=== PATIENT | female | born 1945 | race African-American/Black ===

== ENCOUNTER 2019-09-25 15:49 | Inpatient (IN) ==
[2019-09-25 17:13] LABS: BASO# 0.03 X1000 (0.0-0.2); BASO% 0.2 % (0.0-0.8); EOS# 0.02 X1000 (0.0-0.7); EOS% 0.1 % (0.0-10.0); HEMATOCRIT 44.9 % (37.0-47.0); HEMOGLOBIN 14.3 g/dL (12.0-16.0); IMM GRAN# 0.02 X1000 (0.0-0.04); IMM GRAN% 0.1 % (0.0-0.5); LYMPH# 2.87 X1000 (1.2-3.4); LYMPH% 16.5 % (20.5-51.1); MCH 25.4 PG (27-31); MCHC 31.8 g/dL (33-37); MCV 79.8 FL (81-99); MONO% 6.9 % (1.7-9.3); NEUT% 76.2 % (42.2-75.2); PLT 346 X1000 (130-400); RBC 5.63 XMIL (4.2-5.4); RDW 13.6 % (11.5-14.5); WBC 17.44 X1000 (4.8-10.8)
[2019-09-25 17:26] LABS: URINE SOURCE CLEAN CATCH
[2019-09-25 17:36] LABS: BILIRUBIN URINE NEGATIVE (NEGATIVE); BLOOD URINE SMALL (NEGATIVE); COLOR YELLOW; GLUCOSE URINE NEGATIVE (NEGATIVE); KETONE URINE 40 mg/dL (NEGATIVE); LEUKOCYTES URINE NEGATIVE (NEGATIVE); NITRITE URINE NEGATIVE (NEGATIVE); PH URINE 6.5; PROTEIN URINE 50 mg/dL (NEGATIVE); TURBIDITY URINE CLEAR (CLEAR); UROBILINOGEN URINE NORMAL (NORMAL)
[2019-09-25] MEDS ORDERED: LEVAQUIN 500 MG/D5W 500 MG/100 ML IVPB IV ONE (17:36)
[2019-09-25 17:40] LABS: AGAP 16; ALB/GLOB RATIO 0.9; ALBUMIN 3.7 g/dL (3.5-5.0); ALKALINE PHOSPHATASE 95 U/L (32-104); BUN 16 mg/dL (8-22); CALCIUM 9.4 mg/dL (8.8-10.2); CHLORIDE 94 mmol/L (98-107); COSMO 272; CREATININE 0.8 mg/dL (0.5-0.9); ESTIMATED GFR > 60; GLUCOSE 106 mg/dL (70-104); GOT 15 U/L (10-30); GPT 8 U/L (10-36); POTASSIUM 3.4 mmol/L (3.5-5.1); SODIUM 135 mmol/L (136-145); TCO2 25 mmol/L (25-35); TOTAL BILIRUBIN 0.49 mg/dL (0.20-1.00); TOTAL PROTEIN 7.9 g/dL (6.3-8.3)
[2019-09-25 17:49] LABS: SP GRAVITY URINE < 1.005
--- NOTE | 2019-09-25 18:13 | PROVIDER DOCUMENTATION ---
This chart was entered by Rhianna Otto Scribe, acting as scribe for Justice Oconnell MD. HPI-Abdominal Pain/GI Problem - General Chief Complaint: Abdominal Pain Stated Complaint: ABSCESS ON COLON Time Seen by Provider: 09/25/19 16:17 Source: patient Allergies/Adverse Reactions: Patient Allergies Allergy/AdvReac Type Severity Reaction Status Date / Time No Known Allergies Allergy Verified 08/18/14 18:43 Home Medications: Home Medication List Medication Instructions Recorded Confirmed Last Taken Type Amlodipine Besylate [Norvasc] 10 mg PO DAILY 08/18/14 08/18/14 08/17/14 History Brimonidine/Timolol Ophth Soln 1 drop BOTH EYES BID 08/18/14 08/18/14 08/18/14 History [Combigan Ophth Soln] Calcium Polycarbophil [Fiber Tabs] 625 mg PO DAILY 08/18/14 08/18/14 08/17/14 History Hydrocodone/APAP 5 mg/325 mg 1 each PO Q6H PRN PRN #12 tablet 08/18/14 Unknown Rx [[place]-5] Ibuprofen [Motrin] 800 mg PO Q8H PRN PRN #30 tablet 08/18/14 Unknown Rx Lisinopril/Hydrochlorothiazide 1 each PO BID 08/18/14 08/18/14 08/17/14 History [Lisinopril-Hctz 20-25 mg Tab] Sitagliptin Phosphate [Januvia] 100 mg PO DAILY 08/18/14 08/18/14 08/17/14 History Travoprost (Benzalkonium) 2.5 ml OP DAILY 08/18/14 08/18/14 08/17/14 History [Travoprost 0.004% Eye Drop] - History of Present Illness-ABD Nature of Presenting Problems: 74yof presents to ED cc RLQ and LLQ abdominal pain, nausea and diarrhea since Wednesday. Pt was seen at Dr. Domínguez office this morning and had CT scan which showed bad case of diverticulitis with abscess according to Dr. Domínguez who spoke with Dr. Oconnell. Pt denies fever, vomiting or blood in stool. Pt has hx of diverticulosis, DM and HTN. Pt is afebrile and nontoxic in appearance upon exam. Abdominal Pain Onset Location: reports: RLQ, LLQ Quality of Pain: reports: sharp Severity in ED: reports: moderate Onset/Duration: reports: 6 days ago Timing: reports: still present Activities at Onset: reports: light activity Exposure to sick contacts?: No Modifying Factors: worse with: palpation Associated Symptoms: reports: diarrhea, nausea # of Diarrhea Episodes: 8 Emesis Description: reports: none Bruising or Bleeding Gums?: No Similar Symptoms Previously?: Yes Recently seen or treated by another doctor?: Yes (seen by Dr. Domínguez this morning) Review of Systems - Adult - REVIEW OF SYSTEMS - ADULT Constitutional: reports: see HPI. denies: chills, fever, fatique Eyes: reports: no symptoms reported Ears, Nose, Mouth & Throat: reports: no symptoms reported Cardiovascular: reports: no symptoms reported Respiratory: reports: no symptoms reported Gastrointestinal: reports: see HPI, abdominal pain (RLQ and LLQ), diarrhea, nausea. denies: vomiting Genitourinary: reports: no symptoms reported Musculoskeletal: reports: no symptoms reported Integumentary: reports: no symptoms reported Neurological: reports: no symptoms reported Psychiatric: reports: no symptoms reported Endocrine: reports: no symptoms reported Hematologic/Lymphatic: reports: no symptoms reported Allergic/Immunologic: reports: no symptoms reported All Other Systems: Reviewed and Negative Past History - Adult - PAST MEDICAL HISTORY-ADULT Review of Records: reports: Old Records Reviewed, Nursing Assessment Review, Medications Reviewed, Social history reviewed & non-contributory. Major Childhood Illnesses: reports: denies history Cardiovascular: reports: HTN Respiratory: reports: denies history Gastrointestinal: reports: denies history Obstetrical/Gynecological: reports: denies history Genitourinary: reports: denies history Musculoskeletal: reports: denies history Neurological: reports: denies history Endocrine/Immune: reports: Diabetes Other Conditions: reports: other (glaucoma) - PRIOR SURGERIES/PROCEDURES Surgical/Procedure History: reports: cholecystectomy, hysterectomy - IMMUNIZATION STATUS Childhood Immunizations: See Nurse Assessment Flu Vaccine: See Nurse Assessment - FAMILY HISTORY Family History: reviewed, not pertinent - SOCIAL HISTORY Smoking: denies Physical Exam-General - PHYSICAL EXAM-ADULT Initial Vital Signs Reviewed: Yes - CONSTITUTIONAL General Appearance: appears well, alert, no apparent distress. negative: anxious, combative - EYES Eyes: PERRL/EOMI, pink conjunctivae. negative: pale conjunctivae - HEAD, EARS, NOSE, MOUTH & THROAT HENMT: normocephalic/atraumatic, moist mucous membranes. negative: angioedema - NECK Neck: non-tender, full range of motion, supple, normal inspection. negative: C- spine tenderness - RESPIRATORY Respiratory: chest non-tender, lungs clear, normal breath sounds. negative: crackles, rales, rhonchi - CARDIOVASCULAR Cardiovascular: normal peripheral pulses, regular rate, rhythm, no edema. negative: bradycardia, tachycardia - GASTROINTESTINAL (ABDOMEN) Abdominal Exam: normal bowel sounds, soft, tenderness (RLQ and LLQ). negative: rigid - LYMPHATIC Lymphatic: no adenopathy. negative: enlargement - MUSCULOSKELETAL Back Exam: normal inspection, no CVA tenderness, no vertebral tenderness. negative: kyphosis Extremity: normal range of motion, non-tender, normal gait, normal inspection, no pedal edema, no calf tenderness, normal capillary refill. negative: deformity - SKIN Integumentary: normal color, normal turgor, warm/dry. negative: diaphoresis, jaundice - NEUROLOGIC Neurologic: senior gis analyst II-XII nml as tested, grossly normal, no motor/sensory deficits. negative: facial droop - PSYCHIATRIC Psych/Mental Status: normal mood/affect, oriented x 3. negative: anxious, disheveled Progress - PLAN OF CARE/RESULTS Progress/Plan/Lab Results: Orders Category Date Time Status BLOOD CULTURE [BLDCUL] Stat Lab 09/25/19 16:18 Uncollected CBC WITH ELECTRONIC DIFF [HEME] Stat Lab 09/25/19 16:17 Uncollected COMPREHENSIVE METABOLIC PANEL [CHEM] Stat Lab 09/25/19 16:18 Uncollected LACTATE, PLASMA [CHEM] Stat Lab 09/25/19 16:18 Uncollected URINALYSIS DIPSTICK ONLY [URINALYSIS] Stat Lab 09/25/19 16:18 Uncollected Result Diagrams: 09/25/19 17:00 09/25/19 17:00 - CT/MRI 1 CT Study: Abdomen, Pelvis Impression: Abnormal ([facility] - [address], [address], [place] [address] [facility] - [address] [place] [address] Department of Imaging Patient: SPARKLE GOULD Date: 09/25/19#: [id number] : 1945DM Status: REG CLIAcct#: [id number] Age/Sex: 74/FRoom/Bed: Loc: CT Ordering Physician: Cash Domínguez Jr, MD Family Physician: Tashi Contreras Jr, MD Reason for Procedure: RLQ PAIN / DIVERTICULITIS Signed CT ABD/PELVIS W/PO AND IV CON - 09/25/2019 INDICATION: RLQ PAIN / DIVERTICULITIS COMPARISON: None FINDINGS: There is some chronic atelectasis in the lung bases. Heart size is normal. There are cholecystectomy clips. Otherwise all abdominal organs are normal. There is severe wall thickening of the sigmoid colon with some surrounding inflammatory stranding, particularly at the right medial side. There is a small rim-enhancing fluid collection measuring 2.7 x 1.9 cm compatible with a tiny diverticular abscess. There are numerous diverticula all throughout the sigmoid colon. The transverse and descending colon are also affected. Normal appendix. No free air. The uterus is not demonstrated. Urinary bladder and rectum are normal. There are moderate degenerative changes of the spine. No acute or suspicious bony lesion. IMPRESSION: 1. Sigmoid colon diverticulitis with a small diverticular abscess. 2. This report was discussed with RT Dulce on 09/25/2019 at 2:45 PM and was readback. This exam was performed using automated exposure control, adjustment of mA or kV according to patient size, and/or use of iterative reconstruction technique Electronically signed by Marcel Lamar 09/25/2019 2:48 PM 09/25/19 8588 Interpreting Physician: Marcel Lamar MD Dictated Date/Time: 09/25/19 1447 cc: Cash Domínguez Jr, MD; Tashi Contreras Jr, MD), See EMR Report - CONSULTS/PCP/HOSPITALIST Notification #1 *Consult/PCP/Hospitalist*: Dr Domínguez asked that PCP admit Reason/Comments: agreed to consult #2 Consult: Dr Shaikh Time Discussed: 18:12 Reason/Comments: asked for basic orders and will see on floor Consult Disposition: Admit Departure - Departure Date of Disposition Decision: 09/25/19 Time of Disposition Decision: 18:09 DIAGNOSIS: Diverticulitis Disposition: ADMITTED INPATIENT 09 Certified Medical Emergency: Emergent Condition: Fair Referrals and Follow-Ups: Tashi Contreras Jr, MD [Primary Care Provider] - - Critical Care Note This patient required my direct & personal management of CC.: No Attestation - Physician/ RITIKA Attestation Patient care was provided by Advanced Practice Provider:: No The physician spent face to face time with patient:: Yes Advanced Practice Provider documentation review:: Supervising physician onsite and consulted in the evaluation and care of this patient. The physician did have a face to face encounter with the patient. This chart was documented by the indicated scribe, (Rhianna Otto Scribbeth) and accurately reflects the services I performed and decisions made by me, Justice Oconnell MD, as attested by the provider's signature.
[2019-09-26] MEDS ORDERED: LEVAQUIN 500 MG/D5W 500 MG/100 ML IVPB ONE (00:12)
[2019-09-26] MEDS ORDERED: TYLENOL PO PRN (06:28)
[2019-09-26] MEDS ORDERED: KLOR-CON PO ONE (06:28)
[2019-09-26 07:29] LABS: BASO# 0.02 X1000 (0.0-0.2); BASO% 0.1 % (0.0-0.8); EOS# 0.04 X1000 (0.0-0.7); EOS% 0.3 % (0.0-10.0); HEMATOCRIT 43.3 % (37.0-47.0); HEMOGLOBIN 13.8 g/dL (12.0-16.0); IMM GRAN# 0.02 X1000 (0.0-0.04); IMM GRAN% 0.1 % (0.0-0.5); LYMPH# 2.29 X1000 (1.2-3.4); LYMPH% 14.5 % (20.5-51.1); MCH 25.7 PG (27-31); MCHC 31.9 g/dL (33-37); MCV 80.6 FL (81-99); MONO# 1.09 X1000 (0.11-0.59); MONO% 6.9 % (1.7-9.3); NEUT# 12.32 X1000 (1.4-6.5); NEUT% 78.1 % (42.2-75.2); PLT 304 X1000 (130-400); RBC 5.37 XMIL (4.2-5.4); RDW 13.4 % (11.5-14.5); WBC 15.78 X1000 (4.8-10.8)
[2019-09-26 08:42] LABS: AGAP 19; ALB/GLOB RATIO 0.9; ALBUMIN 3.6 g/dL (3.5-5.0); ALKALINE PHOSPHATASE 92 U/L (32-104); BUN 16 mg/dL (8-22); CALCIUM 9.6 mg/dL (8.8-10.2); CHLORIDE 96 mmol/L (98-107); COSMO 279; CREATININE 0.8 mg/dL (0.5-0.9); ESTIMATED GFR > 60; GLUCOSE 99 mg/dL (70-104); GOT 20 U/L (10-30); GPT 8 U/L (10-36); POTASSIUM 3.3 mmol/L (3.5-5.1); SODIUM 139 mmol/L (136-145); TCO2 24 mmol/L (25-35); TOTAL BILIRUBIN 0.54 mg/dL (0.20-1.00); TOTAL PROTEIN 7.6 g/dL (6.3-8.3)
[2019-09-26] MEDS: HUMALOG SUBQ SCH ×4 (08:43→22:05)
[2019-09-26] MEDS: MORPHINE IV PRN ×3 (09:19→20:38)
[2019-09-26] MEDS: FLAGYL 500 MG/NS 500 MG/100 ML IVPB IV SCH ×2 (09:21→20:38)
[2019-09-26] MEDS: JANUVIA PO SCH (09:22)
[2019-09-26] MEDS: PRINZIDE 10/12.5MG PO SCH (09:22)
[2019-09-26] MEDS: FIBERCON PO SCH (09:22)
[2019-09-26] MEDS: COMBIGAN OPHTH SOLN BOTH EYES SCH ×3 (09:23→20:41)
[2019-09-26] MEDS: NORVASC PO SCH (09:23)
--- NOTE | 2019-09-26 13:45 | PROGRESS NOTE ---
DATE: 09/26/2019 SUBJECTIVE: The patient feeling a little better in regard to abdominal pain. History of recurrent diverticulitis in the past. OBJECTIVE: T-max 99.5 degrees, pulse 93, respirations 18, blood pressure 142/73, and O2 saturation on room air 97%.CV: RRR without murmur. Lungs: Clear to auscultation. Abdomen: Soft. Active bowel sounds. Mild tenderness in right suprapubic area. Minimal left lower quadrant. No mass or organomegaly. No rebound or guarding. Extremities: No calf tenderness, cords or edema. Neurologic: Cranial nerves 2-12 are intact. LABORATORY: White count has declined from admission from 17 down to 15, hemoglobin 13.8, and platelets 304,000. CMP unremarkable except for potassium of 3.3. The patient was given potassium 40 mEq orally x1 this morning. Blood sugars 156 this morning IMAGING: CT scan of the abdomen and pelvis reveals sigmoid diverticulitis with small abscess. ASSESSMENT: 1. Sigmoid diverticulitis with small abscess. 2. Type 2 diabetes mellitus. 3. Hypertension. 4. Glaucoma. 5. Mild hypokalemia. PLAN: 1. Continue IV Flagyl and Levaquin and her home medications. 2. Monitoring Accu-Chek's and given her sliding scale as required. 3. She is on clear liquids currently. We will continue that with. 4. We will start prophylactic doses of Lovenox as she is quite inactive at this point. 5. Replete potassium. 6. We will plan on conservative measures, and repeat CAT scan in the next few days. cc: MD Emily Aggarwal MD
--- NOTE | 2019-09-26 16:57 | HISTORY AND PHYSICAL ---
CHIEF COMPLAINT: Abdominal pain. HISTORY OF PRESENT ILLNESS: This is a 74-year-old female who has been having lower abdominal pain for the past 3 days. According to the patient, she was having significant pain in her lower abdomen, because of which she saw Dr. Domínguez from the GI service who did CT scan on her abdomen that showed severe diverticulitis along with abscess formation because of which he advised the patient to be admitted to the hospital through emergency room. The patient denies having any fever but does complain of having some nausea. She denies having any vomiting. She has also been having diarrhea that has been watery. PAST MEDICAL HISTORY: 1. Type 2 diabetes mellitus. 2. Hypertension. 3. Glaucoma. SOCIAL HISTORY: Patient smokes 1 pack of cigarettes per week. She has been smoking for the past 52 years. She did quit smoking 9 months ago but then restarted smoking cigarettes over the . She lives alone and has 3 children. She has 1 son and 2 daughters, all of home live in [facility]. FAMILY HISTORY: Noncontributory. ALLERGIES: No known drug allergies reported. CURRENT HOME MEDICATIONS: 1. Amlodipine 10 mg orally once daily. 2. Lisinopril/hydrochlorothiazide 20 mg/25 mg orally twice daily. 3. Januvia 100 mg orally once daily. 4. Hydrocodone/acetaminophen 5 mg/325 mg orally every 6 hours as needed for pain. 5. Combigan ophthalmic solution 1 drop in each eye twice daily. 6. Travoprost eye drops 1 drop in each eye at bedtime. REVIEW OF SYSTEMS: A full 14-point review of systems was obtained that was pretty much the same as already has been explained in the HPI. PHYSICAL EXAMINATION: VITAL SIGNS: Temperature 99.3 degrees, pulse 106 per minute, respiratory rate 14 per minute, blood pressure 145/67, pulse oximetry 95% on room air. GENERAL: The patient is alert and oriented x3. She does not appear to be in any acute distress. HEENT: Within normal limits. NECK: Supple without any thyromegaly. LYMPHATICS: No lymphadenopathy noted in the neck region. CHEST: Chest wall is nontender. CARDIOVASCULAR: First and second heart sounds are audible without any murmurs or gallops. RESPIRATORY: Bilateral lung air entry is good without any rales or rhonchi. GASTROINTESTINAL: Abdomen is soft and nondistended. It is moderately tender in right and left lower quadrants. No guarding or rigidity are present. There is also no rebound tenderness. Normal bowel sounds are present. NEUROLOGIC: No focal deficits are present. GENITOURINARY: Deferred. MUSCULOSKELETAL: No deformities are present. INTEGUMENTARY: Skin is warm, dry, and without any rash. DIAGNOSTIC DATA: CBC shows WBC count of 17.44 with 76.2% neutrophils. Rest of the CBC is nondiagnostic. Comprehensive metabolic panel showed potassium levels of 3.4 and sodium levels of 135. Rest of the comprehensive metabolic panel is nondiagnostic. Urinalysis was nondiagnostic as well. IMPRESSION: 1. Abdominal pain secondary to acute diverticulitis with small abscess on CT scan. 2. Hypokalemia and hyponatremia. 3. History of type 2 diabetes mellitus and hypertension. PLAN: The patient will be admitted to the medical floor and will be initiated on levofloxacin along with metronidazole intravenously. We will give her morphine sulfate on as-needed basis for pain and give her ondansetron as directed for nausea and vomiting relief. We will place her on a clear liquid diet and advance diet as tolerated. We will repeat CBC and chemistry tomorrow morning. Further recommendations will be given as per hospital course. cc: Emily Shaikh MD
[2019-09-26] MEDS: TRAVATAN 0.004% OPH SOLN BOTH EYES SCH (20:36)
[2019-09-27] MEDS: PRINZIDE 10/12.5MG PO SCH ×4 (02:39→21:33)
[2019-09-27] MEDS: LEVAQUIN 750 MG in NS 150 ML IV SCH (02:40)
[2019-09-27] MEDS: MORPHINE IV PRN ×3 (02:54→21:28)
[2019-09-27] MEDS: ZOFRAN IV PRN ×2 (03:55→21:27)
[2019-09-27] MEDS: FLAGYL 500 MG/NS 500 MG/100 ML IVPB IV SCH ×4 (04:23→21:27)
[2019-09-27 07:22] LABS: BASO# 0.02 X1000 (0.0-0.2); BASO% 0.1 % (0.0-0.8); EOS# 0.02 X1000 (0.0-0.7); EOS% 0.1 % (0.0-10.0); HEMATOCRIT 40.1 % (37.0-47.0); HEMOGLOBIN 12.6 g/dL (12.0-16.0); IMM GRAN# 0.04 X1000 (0.0-0.04); IMM GRAN% 0.2 % (0.0-0.5); LYMPH# 1.49 X1000 (1.2-3.4); LYMPH% 8.9 % (20.5-51.1); MCH 25.4 PG (27-31); MCHC 31.4 g/dL (33-37); MCV 80.8 FL (81-99); MONO# 1.11 X1000 (0.11-0.59); MONO% 6.7 % (1.7-9.3); MPV 9.8 FL (7.4-10.4); NEUT# 13.97 X1000 (1.4-6.5); PLT 307 X1000 (130-400); RBC 4.96 XMIL (4.2-5.4); RDW 13.4 % (11.5-14.5); WBC 16.65 X1000 (4.8-10.8)
[2019-09-27] MEDS: HUMALOG SUBQ SCH ×4 (07:34→21:39)
[2019-09-27 07:41] LABS: AGAP 12; BUN 14 mg/dL (8-22); CHLORIDE 98 mmol/L (98-107); COSMO 280; CREATININE 0.8 mg/dL (0.5-0.9); ESTIMATED GFR > 60; GLUCOSE 128 mg/dL (70-104); MAGNESIUM 1.9 mg/dL (1.5-2.7); POTASSIUM 3.4 mmol/L (3.5-5.1); SODIUM 139 mmol/L (136-145); TCO2 29 mmol/L (25-35)
[2019-09-27] MEDS: NORVASC PO SCH (08:13)
[2019-09-27] MEDS: JANUVIA PO SCH (08:13)
[2019-09-27] MEDS: LOVENOX SUBQ SCH (08:14)
[2019-09-27] MEDS: COMBIGAN OPHTH SOLN BOTH EYES SCH (08:14)
[2019-09-27] MEDS: FIBERCON PO SCH (08:15)
[2019-09-27] MEDS ORDERED: KLOR-CON PO ONE (18:36)
[2019-09-27] MEDS: PROTONIX IV SCH (19:13)
[2019-09-27] MEDS: SODIUM CHLORIDE 0.9% INJ SCH (19:13)
[2019-09-27] MEDS: NS + KCL 20 MEQ 1,000 ML IV SCH (19:13)
--- NOTE | 2019-09-27 21:05 | PROGRESS NOTE ---
DATE: 09/27/2019 SUBJECTIVE: A 74-year-old patient, admitted with significant pain in the lower abdomen, moderate in intensity. The patient also had some nausea. CT scan of the abdomen did reveal significant diverticulitis and small abscess. The patient is on IV antibiotics. The patient claims she still has significant pain and discomfort. Complaining of low-grade fever. Her oral intake is poor. No typical chest pain or palpitation. Denied any nausea or vomiting. The patient did have bowel movement after she had the CT scan done. Her leukocytosis is improving. Denied unusual cough or expectoration. Admission history and physical noted. Past medical history significant for hypertension, NIDDM, glaucoma. OBJECTIVE: Vital signs: Blood pressure 138/53, pulse 76, respirations 16, temperature 98.8 degrees.Skin: Senile turgor. Neck supple. No JVD. Lungs: Bilateral good air entry present. CVS: S1 and S2 heard. Abdomen soft, globular. Bowel sounds present. Tenderness, lower abdomen. No guarding or rigidity. Extremities: No cyanosis or clubbing. No acute DVT. CELL COVERER: Alert, awake. Able to move all 4 limbs. ASSESSMENT: 1. The patient does have significant diverticulitis. 2. Noninsulin-dependent diabetes mellitus. 3. Hypertension. 4. Laboratory data revealed hypokalemia. 5. Leukocytosis. PLAN: I am going to supplement potassium. We will give her some IV fluid, Protonix for upset stomach. Continue rest of the treatment. Check appropriate labs. I am going to repeat abdominal x-ray tomorrow. Overall plan discussed at length with the patient, and she is in agreement. cc: MD Emily Macdonald MD
[2019-09-27] MEDS: TRAVATAN 0.004% OPH SOLN BOTH EYES SCH (21:28)
[2019-09-28] MEDS: LEVAQUIN 750 MG in NS 150 ML IV SCH (02:08)
[2019-09-28] MEDS: ZOFRAN IV PRN ×2 (02:20→18:39)
[2019-09-28] MEDS: MORPHINE IV PRN (02:20)
[2019-09-28] MEDS: COMBIGAN OPHTH SOLN BOTH EYES SCH ×3 (02:21→22:33)
[2019-09-28] MEDS: FLAGYL 500 MG/NS 500 MG/100 ML IVPB IV SCH ×4 (05:35→22:33)
[2019-09-28] MEDS: HUMALOG SUBQ SCH ×4 (07:37→22:32)
[2019-09-28 08:06] LABS: BASO# 0.02 X1000 (0.0-0.2); BASO% 0.1 % (0.0-0.8); EOS# 0.01 X1000 (0.0-0.7); EOS% 0.1 % (0.0-10.0); HEMATOCRIT 41.5 % (37.0-47.0); IMM GRAN# 0.03 X1000 (0.0-0.04); IMM GRAN% 0.2 % (0.0-0.5); LYMPH# 1.65 X1000 (1.2-3.4); LYMPH% 10.5 % (20.5-51.1); MCH 25.5 PG (27-31); MCHC 31.3 g/dL (33-37); MCV 81.5 FL (81-99); MONO# 1.03 X1000 (0.11-0.59); MONO% 6.5 % (1.7-9.3); MPV 9.9 FL (7.4-10.4); NEUT# 13.02 X1000 (1.4-6.5); NEUT% 82.6 % (42.2-75.2); PLT 314 X1000 (130-400); RBC 5.09 XMIL (4.2-5.4); RDW 13.4 % (11.5-14.5); WBC 15.76 X1000 (4.8-10.8)
[2019-09-28 08:26] LABS: AGAP 13; ALB/GLOB RATIO 0.8; ALBUMIN 3.2 g/dL (3.5-5.0); ALKALINE PHOSPHATASE 100 U/L (32-104); BUN 11 mg/dL (8-22); CALCIUM 9.2 mg/dL (8.8-10.2); CHLORIDE 96 mmol/L (98-107); COSMO 272; CREATININE 0.8 mg/dL (0.5-0.9); ESTIMATED GFR > 60; GLUCOSE 106 mg/dL (70-104); GOT 18 U/L (10-30); GPT 12 U/L (10-36); MAGNESIUM 1.6 mg/dL (1.5-2.7); POTASSIUM 3.9 mmol/L (3.5-5.1); SODIUM 136 mmol/L (136-145); TCO2 27 mmol/L (25-35); TOTAL PROTEIN 7.1 g/dL (6.3-8.3)
--- NOTE | 2019-09-28 08:27 | Diag Imaging Result Doc PS360 ---
ABDOMEN FLAT/UPRIGHT - 09/28/2019 INDICATION: sbo COMPARISON: None FINDINGS: There is a nonobstructive bowel gas pattern. No free air or abdominal calcifications. There are surgical clips in the right upper quadrant. IMPRESSION: No acute disease. Electronically signed by Marcel Lamar 09/28/2019 8:24 AM
--- NOTE | 2019-09-28 08:29 | PROGRESS NOTE ---
DATE: 09/28/2019 SUBJECTIVE: Ms. Kamara is feeling somewhat better. Lower abdominal pain seems to be improving. The patient did have a bowel movement yesterday. No nausea or vomiting. No typical chest pain or palpitations. Denied any diarrhea, blood or mucus in the stool. OBJECTIVE: Vital Signs: Her vital signs reviewed. Blood pressure 132/66, pulse 85, respirations 17, and temperature normal. Neck: Supple. No JVD. Lungs: Bilateral good air entry present. CVS: S1 and S2 heard. Abdomen: Soft. No distention. Bowel sounds present. Tenderness lower abdomen improving. ADMINISTRATIVE ASSISTANT RECEPTIONIST: Alert and awake. Able to move all 4 limbs. LABORATORY: Data done yesterday reviewed and discussed with the patient. Today's labs are pending. ASSESSMENT AND PLAN: We will continue current treatment. Out of bed to chair. Ambulate the patient in the room and hallway. Her problem includes diverticulitis with small abscess, hypertension, glaucoma and IDDM. Patient is on Flagyl and Levaquin. Overall plan discussed at length with the patient, and she is in agreement. cc: MD Emily Macdonald MD
[2019-09-28] MEDS: FIBERCON PO SCH (08:48)
[2019-09-28] MEDS: PRINZIDE 10/12.5MG PO SCH ×3 (08:49→22:35)
[2019-09-28] MEDS: NORVASC PO SCH (08:49)
[2019-09-28] MEDS: JANUVIA PO SCH (08:49)
[2019-09-28] MEDS: LOVENOX SUBQ SCH (08:49)
[2019-09-28] MEDS: NS + KCL 20 MEQ 1,000 ML IV SCH (13:37)
[2019-09-28] MEDS: SODIUM CHLORIDE 0.9% INJ SCH (18:39)
[2019-09-28] MEDS: PROTONIX IV SCH (18:39)
[2019-09-28] MEDS: TRAVATAN 0.004% OPH SOLN BOTH EYES SCH (22:32)
[2019-09-29] MEDS: FLAGYL 500 MG/NS 500 MG/100 ML IVPB IV SCH ×4 (03:19→20:27)
[2019-09-29] MEDS: LEVAQUIN 750 MG in NS 150 ML IV SCH (06:20)
[2019-09-29] MEDS: HUMALOG SUBQ SCH ×4 (06:57→22:05)
--- NOTE | 2019-09-29 08:10 | Diag Imaging Result Doc PS360 ---
EXAM: CT ABD/PELVIS W/IV CONT ONLY 09/29/2019 HISTORY: abd.pain,diverticulitis TECHNIQUE: This exam was performed using automated exposure control, adjustment of mA or kV according to patient size, and/or use of iterative reconstruction technique. COMMENT: There is fibrosis and some bronchiectasis in the medial portion of the right lower lobe. The appearance of the visualized portion of the chest has not changed significantly since 09/25/2019. There are atherosclerotic calcifications present in the distal abdominal aorta. There is some noncalcified plaque distally but there is no evidence of aneurysm. The mesenteric and renal arteries are patent. There has been cholecystectomy. There is no evidence of nephrolithiasis. There is a small hiatal hernia. The liver, spleen, adrenal glands, and pancreas are unremarkable. The kidneys are without evidence of hydronephrosis. There are number of small cortical cysts in the left kidney. There is diverticulosis present in the left colon and diverticulitis in the sigmoid colon. The small bowel is not distended. There is no evidence of significant adenopathy. Pelvis: The paracolic abscess which was demonstrated at the time the previous study is again noted, currently measuring 29 mm in greatest dimension. This has not changed significantly since the previous study there are however additional loculations present more inferiorly which were not as evident on the previous study. There is no evidence of free fluid. The urinary bladder is unremarkable. There has been hysterectomy. There are bone islands in the right pubic bone, left ischium and severe degenerative facet disease at L5-S1 on the left. There is facet disease elsewhere in the lumbar spine. IMPRESSION: Sigmoid diverticulitis with paracolic abscesses. Electronically signed by Juvenal Ferreira 09/29/2019 8:07 AM
[2019-09-29 08:57] LABS: URINE SOURCE CLEAN CATCH
[2019-09-29 09:01] LABS: BILIRUBIN URINE NEGATIVE (NEGATIVE); BLOOD URINE TRACE (NEGATIVE); COLOR YELLOW; GLUCOSE URINE NEGATIVE (NEGATIVE); KETONE URINE 10 mg/dL (NEGATIVE); LEUKOCYTES URINE SMALL (NEGATIVE); NITRITE URINE NEGATIVE (NEGATIVE); PH URINE 6.5; PROTEIN URINE NEGATIVE (NEGATIVE); TURBIDITY URINE CLEAR (CLEAR); UROBILINOGEN URINE NORMAL (NORMAL)
[2019-09-29] MEDS: COMBIGAN OPHTH SOLN BOTH EYES SCH ×2 (09:01→22:06)
[2019-09-29 09:02] LABS: UR EPITHELIAL CELLS <10 /HPF (<10); URINE BACTERIA NEGATIVE /HPF; URINE RBC <10 /HPF (<10); URINE WBC <10 /HPF (<10)
[2019-09-29] MEDS: LOVENOX SUBQ SCH (09:02)
[2019-09-29] MEDS: PRINZIDE 10/12.5MG PO SCH ×3 (09:02→22:08)
[2019-09-29] MEDS: JANUVIA PO SCH (09:02)
[2019-09-29] MEDS: FIBERCON PO SCH (09:02)
[2019-09-29] MEDS: NORVASC PO SCH (09:02)
[2019-09-29 09:10] LABS: SP GRAVITY URINE < 1.005
--- NOTE | 2019-09-29 10:32 | PROGRESS NOTE ---
DATE: 09/29/2019 SUBJECTIVE: Ms. Kamara is feeling better. The patient tolerated a full liquid diet well. No high- grade fever or chills. The patient still has some abdominal pain though much less. Blood work done yesterday did reveal leukocytosis. No typical chest pain or palpitations. The patient is having a bowel movement. OBJECTIVE: Vital Signs: Noted. Neck: Supple. No JVD. Lungs: Bilateral good air entry present. Cardiovascular System: S1 and S2 heard. Abdomen: Soft, globular. Bowel sounds present. Tenderness in lower abdomen. Extremities: No cyanosis, clubbing. No acute DVT. Central Nervous System: Alert, awake, able to move all 4 limbs. LABORATORY DATA: Done yesterday, WBC count 15.76. The patient does have a left shift. ASSESSMENT AND PLAN: The patient was concerned about her diverticular abscess, diverticulitis. Her WBC count is not improving significantly. I am going to repeat CT scan of the abdomen and pelvis. Ambulate the patient in the room and hallway. Discussed about contrast-induced nephropathy risks. The patient understood and agreed. I am going to get CT scan of the abdomen and pelvis. The patient is eager to go home. After reviewing CT, we will make further recommendations. Hopefully I am planning to discharge her home on oral antibiotics, plenty of liquids orally. Continue home medicine. Advised patient to be on full liquid to soft diet as tolerable. Follow up with Dr. Contreras next week. The patient understood and agreed. cc: MD Emily Macdonald MD
[2019-09-29 16:34] LABS: BASO# 0.03 X1000 (0.0-0.2); BASO% 0.3 % (0.0-0.8); EOS# 0.05 X1000 (0.0-0.7); EOS% 0.4 % (0.0-10.0); HEMATOCRIT 40.3 % (37.0-47.0); HEMOGLOBIN 12.7 g/dL (12.0-16.0); IMM GRAN# 0.04 X1000 (0.0-0.04); IMM GRAN% 0.3 % (0.0-0.5); LYMPH# 1.93 X1000 (1.2-3.4); LYMPH% 16.8 % (20.5-51.1); MCH 25.6 PG (27-31); MCHC 31.5 g/dL (33-37); MCV 81.1 FL (81-99); MONO# 0.68 X1000 (0.11-0.59); MONO% 5.9 % (1.7-9.3); MPV 9.7 FL (7.4-10.4); NEUT# 8.73 X1000 (1.4-6.5); NEUT% 76.3 % (42.2-75.2); PLT 318 X1000 (130-400); RBC 4.97 XMIL (4.2-5.4); RDW 13.5 % (11.5-14.5); WBC 11.46 X1000 (4.8-10.8)
[2019-09-29] MEDS: NS + KCL 20 MEQ 1,000 ML IV SCH ×2 (19:49→19:50)
[2019-09-29] MEDS: PROTONIX IV SCH (20:27)
--- NOTE | 2019-09-29 21:47 | PROGRESS NOTE ---
DATE: 09/29/2019 SUBJECTIVE: Ms. Kamara is doing better. She denied any fever, chills. Her oral intake is fairly well. No nausea, vomiting. Minimal abdominal pain. The patient is having bowel movement. I repeated CT scan today, results reviewed. Her abscess is still the same size or may be minimally enlarged. I consulted her pilot plant technician, who recommended to consult surgeon, and there recommendation was to keep the patient in the hospital. Clinically, as I said, patient was afebrile, ambulating well. I repeated a CBC and her white count is normal. The patient was eager to go home. I re-evaluated the patient. Her tenderness is improving. The patient will be seen by Dr. Jordan and Dr. Arita over the weekend, and Dr. Dominguez. PLAN: Discussed with the patient. cc: MD Emily Macdonald MD MTDD
[2019-09-29] MEDS: TRAVATAN 0.004% OPH SOLN BOTH EYES SCH (22:06)
[2019-09-30] MEDS: FLAGYL 500 MG/NS 500 MG/100 ML IVPB IV SCH ×4 (01:50→19:42)
--- NOTE | 2019-09-30 04:41 | GENERAL SURGERY CONSULTATION ---
DATE: 09/29/2019 REASON FOR CONSULTATION: Diverticular abscess. HISTORY OF PRESENT ILLNESS: This is a 74-year-old female who has had 2 outpatient episodes of diverticulitis that resolved with p.o. antibiotics, but developed worsening symptoms over the last few days. She was initially evaluated by Dr. Domínguez and was found to have a diverticular abscess. She was admitted on the for management of this. Another CT scan was obtained on the 09/29 that showed persistent abscess but no change. She says her bowel function prior to all this has been usual. She had no blood. She does have an extensive family history of colon cancer, including a brother who had a colon resection and I believe an older family member that succumbed to the disease. She has had a colonoscopy, I believe, most recently 2015. MEDICAL HISTORY: Diabetes, hypertension, glaucoma. SURGICAL HISTORY: She has had a hysterectomy, I believe she has had a cholecystectomy as well. SOCIAL HISTORY: She does smoke a pack cigarettes a week. Occasional alcohol. She lives in [place], has worked on the [employer] in the past. FAMILY HISTORY: Reviewed and noncontributory. REVIEW OF SYSTEMS: A 10-point review of systems performed, negative other than what is mentioned in HPI. MEDICATIONS: She takes several medications for diabetes and hypertension, but no anticoagulants. PHYSICAL EXAMINATION: General: She is alert, in no acute distress. Vital signs: She is afebrile. Pulse 84, blood pressure 137/61, oxygen saturation 95%. HEENT: No scleral icterus. No cervical mass. Cardiovascular: Normal rate. Pulmonary: No increased work of breathing. Abdomen: Soft, nontender, nondistended. Integument: Warm and dry. Psychiatric: Appropriate affect. Neurologic: No gross deficits. Peripheral vascular: No lower extremity edema. Lymphatic: No cervical, axillary, or inguinal adenopathy. LABORATORY DATA: White count 11, hematocrit 40. Creatinine is normal yesterday. Urinalysis shows small leukocytes. I reviewed both her previous CT scan prior to admission and the one obtained on 09/29. ASSESSMENT/PLAN: A 74-year-old female with a very small 2.5 cm pericolonic diverticular abscess. She has no free air. Her abdominal exam is benign. Her symptoms are much improved. Given the fact that she does have an abscess not amenable to percutaneous drainage, I think IV antibiotics is the most reasonable option with PICC line. I have discussed with the patient. Another option would be p.o. antibiotics, but I do worry about this incompletely resolving with this. Her exam is benign, she has normalizing white count. We will follow her over the next couple days and advance her diet gradually as tolerated. She may ultimately benefit from an elective sigmoid colectomy given recurrent symptoms or if this were to fail or progress. However, in an elective situation her chance of colostomy would be much lower, it would also allow us to give a follow-up colonoscopy, as it has been almost 4 years since her last with her extensive family history of colon cancer. We will follow along. Discussed the plan with the patient. She understands. cc: MD Emily Champion MD MTDD
[2019-09-30] MEDS: LEVAQUIN 750 MG in NS 150 ML IV SCH (06:03)
[2019-09-30] MEDS: HUMALOG SUBQ SCH ×4 (07:05→22:25)
[2019-09-30] MEDS: PRINZIDE 10/12.5MG PO SCH ×2 (09:32→20:11)
[2019-09-30] MEDS: NORVASC PO SCH (09:32)
[2019-09-30] MEDS: JANUVIA PO SCH (09:32)
[2019-09-30] MEDS: LOVENOX SUBQ SCH (09:32)
[2019-09-30] MEDS: COMBIGAN OPHTH SOLN BOTH EYES SCH ×2 (09:33→20:10)
[2019-09-30] MEDS: FIBERCON PO SCH (09:34)
[2019-09-30 12:28] LABS: INR 1.26
[2019-09-30] MEDS ORDERED: NS 250 ML ONE (13:00)
[2019-09-30] MEDS ORDERED: LOMOTIL PO SCH (13:00)
--- NOTE | 2019-09-30 14:20 | PROGRESS NOTE ---
DATE: 09/30/2019 The patient is a 74-year-old black female patient of Dr. Contreras with diverticulitis and diverticular abscess about 3 cm in the sigmoid colon. Dr. Jordan is following. She is currently on Levaquin and Flagyl. She seems to be improving. Laboratory indicates white blood count 23921, down from a couple days ago, 15,700. Hematocrit is 40.3. VITAL SIGNS: Temperature 98.3 degrees, heart rate 76, respirations 18, blood pressure 148/59, O2 saturation on room air 97%. Her abdominal discomfort has improved, but she continues to have diarrhea, loose watery stools. Brief discussion was made with Dr. Jordan who indicated that IV antibiotics at home would be needed to help resolve the abscess. Despite her apparent improvement, he felt the IV was more indicated than p.o. antibiotics. Therefore, a PICC line consult is obtained. If she continues to improve, discharge home will be considered with home antibiotics on Wednesday. cc: MD Emily Carlton MD
--- NOTE | 2019-09-30 15:58 | GENERAL SURGERY PROGRESS NOTE ---
DATE: 09/30/2019 SUBJECTIVE: She feels well. Only very mild intermittent discomfort. No fevers. No tachycardia. OBJECTIVE: Blood pressure 148/59. General: She is alert. Cardiovascular normal rate. Pulmonary no increased work of breathing. Abdomen is soft, nontender, nondistended. Integument: Warm and dry. White count was down to 11 yesterday. ASSESSMENT AND PLAN: This pleasant 74-year-old female with diverticular abscess is small, not amenable to percutaneous drainage. Given these findings, I would recommend PICC line and IV antibiotics as an outpatient. I talked to Dr. Wild about this. Otherwise we can follow her along. She does seem to be clinically improving from an infection standpoint. cc: MD Emily Champion MD
[2019-09-30] MEDS: PROTONIX IV SCH (18:54)
[2019-09-30] MEDS: TRAVATAN 0.004% OPH SOLN BOTH EYES SCH (20:11)
--- NOTE | 2019-09-30 20:35 | GASTROENTEROLOGY CONSULTATION ---
DATE: 09/30/2019 PRIMARY CARE PHYSICIAN: Dr. Tashi Contreras. REASON FOR CONSULTATION: Diverticulitis and diverticular abscess. HISTORY OF PRESENT ILLNESS: Ms. Kamara is a 74-year-old female who was admitted on 09/25/2019 for abdominal pain. She had seen Dr. Domínguez as an outpatient. She had a CT scan which showed evidence of severe diverticulitis along with abscess formation. She was admitted to the hospital for further treatment. While in the hospital, she was seen by the General Surgery team, who recommended IV antibiotics. She had a PICC line placed today, and the plan is to continue antibiotics for a total of 2 weeks. There are no plans of any surgical intervention at the moment. The patient is feeling better, and she is eager to go home. Most likely, she will be getting discharged tomorrow morning if she tolerates IV antibiotics and the PICC line is working well. PAST MEDICAL HISTORY: Type 2 diabetes, hypertension, glaucoma. FAMILY HISTORY: She has a strong family history of colon cancer, including colon cancer in her brother, who required colon resection. ALLERGIES: No known drug allergies. SOCIAL HISTORY: She smokes 1 pack of cigarettes per week. She has been smoking for the last 52 years. She quit smoking 9 months ago but restarted smoking over the last Thanksgi. She lives alone. She has 3 children. She has 1 son and 2 daughters. All of them live in the [place] area. Her last colonoscopy was likely in 2015. PAST SURGICAL HISTORY: Hysterectomy, cholecystectomy. REVIEW OF SYSTEMS: Denies any current fevers, rigors, chills, chest pain, shortness of breath, dyspnea. Denies any vomiting blood or passing blood in the stools. She does have a history of altered bowel habits. Denies any neurologic complaints. MEDICATIONS IN HOSPITAL: Include: Tylenol amlodipine, brimonidine/timolol ophthalmic solution, FiberCon, Lomotil, Lovenox, Flagyl, Humalog sliding scale, Levaquin, lisinopril/hydrochlorothiazide, morphine, Zofran, Protonix b.i.d., Januvia, Travoprost ophthalmic solution. The patient is on a full liquid diet and yogurt x2 every day. PHYSICAL EXAMINATION: Vital signs: Temperature 98.2, pulse rate 72, respiratory rate 16, blood pressure 110/60, saturating 99% on room air. Body weight of 154 pounds. BMI 26.4 kg. General: The patient is lying in bed, in no acute distress. HEENT: No pallor, no icterus. Pupils equal, reactive to light. Neck: Supple. Abdomen: Soft. Mild discomfort in the left lower quadrant. No rebound. No guarding. Extremities: No clubbing. Neurologic: She is alert, awake, oriented. LABS: Her hemoglobin and hematocrit are 12.7 and 40.3, white count of 11.46, platelet count 318. INR 1.26, PT of 16. Blood glucose of 208. Her urinalysis is showing positive ketones, trace blood and small leukocytes. Her blood cultures x2 negative at [address] scan done on 09/29/2019 showed sigmoid diverticulitis with pericolic abscess, small hiatal hernia. Has had a cholecystectomy. The paracolic abscess measured 29 mm in greatest dimension. Degenerative disc disease L5-S1. According to the records from our office, her EGD was done 11/04/[address] Domínguez, which showed multiple esophageal diverticula with segmental benign- appearing narrowing, mild gastritis and medium paraesophageal hernia noted on retroflexion. IMPRESSION/PLAN: 1. Diverticulitis in the sigmoid colon. 2. Paracolic abscess from diverticulitis. 3. Chronic smoker. 4. Type 2 diabetes. 5. Hypertension. 6. Hyperlipidemia. 7. Glaucoma. 8. Status post cholecystectomy and hysterectomy. 9. Reflux disease. 10. Esophageal diverticula. 11. Gastric fundus diverticulum. 12. Family history of colon cancer in brother. RECOMMENDATIONS: The patient will continue on antibiotics per the primary care team for a total of 10 to 14 days. General Surgery is on board. According to General Surgery, this abscess is too small. No surgical intervention is needed. She will need an interval colonoscopy in 4-6 weeks after discharge. In that regard, she will follow up with Dr. Domínguez in 3 weeks of discharge. She is on deep venous thrombosis prophylaxis with Lovenox. I will discontinue her Lomotil, as it can exacerbate constipation. She is on morphine 2 mg IV every 4 hours. She is on IV Zofran as needed for nausea. She is on gastrointestinal prophylaxis with Protonix once daily. She does have a history of reflux disease and esophageal diverticulum and gastric fundus diverticulum. We will also start her on Metamucil once daily, which she will continue as an outpatient. She will avoid excessive corn, nuts, and seeds in diet. She will follow up with Dr. Domínguez on discharge within 3 weeks. The above plans were discussed with the patient and all questions answered. Please call us with any further questions. We will sign off at this time. The patient will follow with Dr. Domínguez in 3 weeks of discharge. cc: MD Emily Thornton MD Roger H. Moss Jr, MD
[2019-10-01] MEDS: FLAGYL 500 MG/NS 500 MG/100 ML IVPB IV SCH ×4 (01:47→19:59)
[2019-10-01] MEDS: LEVAQUIN 750 MG in NS 150 ML IV SCH (06:03)
[2019-10-01] MEDS: HUMALOG SUBQ SCH ×5 (06:53→22:53)
[2019-10-01] MEDS: ZOFRAN IV PRN (08:13)
[2019-10-01] MEDS: COMBIGAN OPHTH SOLN BOTH EYES SCH ×2 (08:19→20:00)
[2019-10-01] MEDS: LOVENOX SUBQ SCH (08:22)
[2019-10-01] MEDS: PRINZIDE 10/12.5MG PO SCH ×2 (09:18→20:00)
[2019-10-01] MEDS: NORVASC PO SCH (09:18)
[2019-10-01] MEDS: METAMUCIL PO SCH (09:18)
[2019-10-01] MEDS: JANUVIA PO SCH (09:18)
--- NOTE | 2019-10-01 09:24 | PROGRESS NOTE ---
DATE: 10/01/2019 OBJECTIVE: Vital Signs: Temperature 98.3 degrees, heart rate 79, respirations 16, blood pressure 148/64, O2 saturation on room air 97%. Sugar is good with the last one being 95. There is mild left lower quadrant abdominal tenderness, especially when her bladder is full. She had some nausea this morning, but it is better after receiving medication. She has not ambulated much in the hospital. PLAN: Ambulate today, and consider discharge tomorrow. She has a PICC line in the right upper arm. cc: MD Emily Carlton MD
--- NOTE | 2019-10-01 15:06 | GENERAL SURGERY PROGRESS NOTE ---
DATE: 10/01/2019 SUBJECTIVE: No GI complaints. Bowel functions. Tolerating a diet. Only intermittent pains but nothing constant. She had a PICC line placed. There was no fevers, no tachycardia. I reviewed her labs. PHYSICAL EXAMINATION: General: She is alert. Abdomen: Soft, nontender, nondistended. PICC line is in place and is clean without any bruising. ASSESSMENT/PLAN: 72-year-old female with diverticular abscess. Plan is for outpatient antibiotics via PICC line and discharge tomorrow. I agree with this. She will need follow-up colonoscopy in 4-6 weeks and we will discuss possible elective sigmoid colectomy going forward. cc: MD Emily Champion MD
[2019-10-01] MEDS: PROTONIX IV SCH (17:59)
[2019-10-01] MEDS: TRAVATAN 0.004% OPH SOLN BOTH EYES SCH (20:00)
[2019-10-02] MEDS: FLAGYL 500 MG/NS 500 MG/100 ML IVPB IV SCH ×2 (01:47→08:47)
[2019-10-02] MEDS: LEVAQUIN 750 MG in NS 150 ML IV SCH (06:05)
[2019-10-02] MEDS: HUMALOG SUBQ SCH ×2 (06:52→12:12)
[2019-10-02] MEDS: COMBIGAN OPHTH SOLN BOTH EYES SCH (08:40)
[2019-10-02] MEDS: JANUVIA PO SCH (09:00)
[2019-10-02] MEDS: METAMUCIL PO SCH (09:00)
[2019-10-02] MEDS: PRINZIDE 10/12.5MG PO SCH (09:00)
[2019-10-02] MEDS: NORVASC PO SCH (09:00)
[2019-10-02] MEDS: LOVENOX SUBQ SCH (09:00)
[2019-10-02 11:26] VITALS: BP 115/66
--- NOTE | 2019-10-03 10:22 | DISCHARGE SUMMARY ---
ADMISSION DATE: 09/25/2019 DISCHARGE DATE: 10/02/2019 FINAL DIAGNOSES: 1. Abdominal pain. 2. Diverticulitis. 3. Diverticular abscesses. DISCHARGE MEDICATIONS: Will be her home medications plus she will be on IV Levaquin 750 mg daily for 10 days and Flagyl 500 mg IV q.6 hours for 10 days. I will see her back in my office in the next week. We will probably arrange for her to have another CT scan of the abdomen with IV contrast/ PRESENT ILLNESS: The patient had been having lower abdominal pain for 3 days prior to coming the emergency room. She is seen DR. Domínguez the GI service. They did a CT scan of her abdomen that showed severe diverticulitis with abscess formation. He had advised that she would be admitted to the hospital through the emergency room. She later had another CT scan that still showed the abscess formation plus some other small abscesses. Initially was thought she might could have been treated with p.o. medications but since she developed the other abscesses it was felt like she needed to continue with IV antibiotics. She was started on IV Levaquin 750 mg daily and the IV Flagyl 500 mg q.6 hours, slowly did get better and on the discharge day was not having any abdominal pain. Says she felt ready to go home. We made arrangements after getting a PICC line so that she could have her IV antibiotics at home. I have encouraged her to stop smoking as she is a smoker. We will continue her amlodipine 10 mg daily, lisinopril hydrochlorothiazide 20/25 1 p.o. b.i.d., Januvia 100 mg p.o. daily, Combigan ophthalmic solution 1 drop to each eye twice daily and Travoprost eyedrops 1 drop to each eye at bedtime. SECONDARY DIAGNOSES: She says she does have secondary diagnoses of hypertension, diabetes mellitus, and glaucoma. CONSULTATION: GI. Dr. Domínguez and surgery Dr. Jordan. He did not feel like she was going to need surgery. FOLLOWUP: We will see her back in my office in March and then decide whether she needs another CT scan or not. She will also have followup with Dr. Domínguez. I appreciate the help from the specialists. cc: MD Emily Mitchell Jr, MD
== END 2019-10-02 12:21 | disposition home or self-care (01) | DRG 392 ==
LOC: ED 15:49 → EDIPHOLD 22:09 → 4N 09-26 09:07
PROVIDERS: ADMIT Internal Medicine; ATTEND Emergency Medicine